=== PATIENT | male | born 1975 | race Caucasian/White ===

== ENCOUNTER 2017-07-04 07:52 | Emergency (ER) | payer SELFPAY ==
[~2017-07-04] VITALS: Ht 177.8 cm; Wt 98.0 kg
[~2017-07-04 07:52] MED LIST: CEPH500C3 PO; IBUP800T23 PO
[2017-07-04 07:54] VITALS: BP 142/78; PULSE 75; RESP 18; TEMP 97.7; O2SAT 98
[2017-07-04] MEDS ORDERED: ROBA500T PO (08:20)
[2017-07-04] MEDS ORDERED: MEDR4PAK PO (08:20)
[2017-07-04] MEDS ORDERED: IBUP1TAB7 PO (08:20)
--- NOTE | 2017-07-04 08:21 | PD ---
HPI Chief Complaint: Pain: Acute or Chronic Time Seen by Provider: 08:09 Travel History International Travel<30 days: No Contact w/Intl Traveler<30days: No Traveled to known affect area: No History of Present Illness HPI 42-year-old male presents to the emergency department with complaint of right arm pain of the muscle area of the right lateral elbow 1-1-1/2 weeks. He thinks he has tennis elbow. Denies traumatic injury. Reports doing excessive yard work a week and a half ago and then doing some deep sea fishing with worsening of symptoms after using the fishing pole and revealing in big fashion. Denies paresthesias, loss of sensation, decreased range of motion, decreased strength to the affected extremity. Pain is worse at night. Better throughout the day. Better after drinking alcohol. Has tried taking Percocet, Lortab, and Valium for symptom management. Symptoms are mild to moderate in severity. Has been using a tennis elbow brace and arm sleeve for symptom management. Has a primary care provider. No known allergies. No other modifying factors or associated signs and symptoms. PFSH Past Medical History Diminished Hearing: No Social History Alcohol Use: Yes Tobacco Use: Yes Substance Use: No Allergies-Medications (Allergen,Severity, Reaction): Coded Allergies: No Known Allergies (Unverified , 07/20/15) Reported Meds & Prescriptions Reported Meds & Active Scripts Active Ibuprofen 800 Mg Tab 800 Mg PO Q6HR PRN Medrol Dosepak (Methylprednisolone) 4 Mg Dspk 4 Mg PO DIRECTED Per Pharmacist direction Robaxin (Methocarbamol) 500 Mg Tab 500 Mg PO QID PRN Ibuprofen 800 Mg Tab 800 Mg PO Q8 PRN Keflex (Cephalexin Monohydrate) 500 Mg Cap 500 Mg PO Q6HR 7 Days Review of Systems Except as stated in HPI: all other systems reviewed are Neg Physical Exam Narrative GENERAL: Well-nourished, well-developed patient, in no acute distress SKIN: Warm and dry. HEAD: Atraumatic. Normocephalic. EYES: Pupils equal and round. No scleral icterus. No injection or drainage. ENT: Mucosa pink and moist. Airway patent. NECK: Trachea midline. CARDIOVASCULAR: Regular rate. RESPIRATORY: No accessory muscle use. GASTROINTESTINAL: Flat. MUSCULOSKELETAL: Right elbow with full range of motion; without edema; without erythema or ecchymosis; with tenderness on palpation to the musculature of the lateral aspect; with full hand packer/packager strength and push/pull strength; sensory intact; 2+ radial pulse. Right Upper extremity supple and nontense with 2+ radial pulse and sensory intact. No obvious deformities. No clubbing. No cyanosis. No edema. NEUROLOGICAL: Awake and alert. Oriented 3. No obvious cranial nerve deficits. Motor grossly within normal limits. Normal speech. PSYCHIATRIC: Appropriate mood and affect; insight and judgment normal. Data Data Last Documented VS Vital Signs Date Time Temp Pulse Resp B/P (MAP) Pulse Ox O2 Delivery O2 Flow Rate FiO2 07/04/17 07:54 97.7 75 18 142/78 (99) 98 Orders Orders Ed Discharge Order (07/04/17 08:21) Methocarbamol (Robaxin) (07/04/17 08:30) MDM Medical Decision Making Medical Screen Exam Complete: Yes Emergency Medical Condition: Yes Medical Record Reviewed: Yes Differential Diagnosis arm Pain, muscle strain of arm, epicondylitis Narrative Course 42-year-old male with right arm pain and muscle strain of right arm. Denies injury. Has full range of motion and strength. I do not suspect fracture dislocation feel that imaging is not necessary at this time. Patient agrees. Patient requesting steroids. I discussed use of steroids and he would like to try them because pain medications are not working. Ibuprofen, Medrol Dosepak, Robaxin prescribed home. Instructed patient to follow-up with orthopedics as needed. Instructed patient to follow up with primary care provider. Patient verbalizes understanding and agreement with treatment plan. Patient is medically cleared and stable for discharge. Discussed reasons to return to the emergency department. Patient agrees with treatment plan. The patients vital signs are stable and the patient is stable for outpatient follow-up and treatment. Patient discharged home, stable and in no acute distress. Diagnosis Primary Impression: Arm pain, right Additional Impression: Muscle strain of right upper extremity Qualified Codes: S46.911A - Strain of unspecified muscle, fascia and tendon at shoulder and upper arm level, right arm, initial encounter Referrals: Orthopaedic Surgeon Primary Care Physician Patient Instructions: Arm Pain (ED), General Instructions, Muscle Strain (ED) Additional Instructions: Ibuprofen or Tylenol as directed and as needed for pain and inflammation Avoid aggravating activity Increase activity as tolerated Brace as needed for support Ice and/or heat to affected area to reduce pain and inflammation Follow-up with orthopedics as needed Follow-up with primary care provider Return to the emergency department immediately with worsening of symptoms Med/Other Pt SpecificInfo: Prescription(s) given Scripts Ibuprofen (Ibuprofen) 800 Mg Tab 800 MG PO Q6HR Y for PAIN, #30 TAB 0 Refills Prov: Agata De Guzman 07/04/17 Methylprednisolone Dosepak (Medrol Dosepak) 4 Mg Dspk 4 MG PO DIRECTED, #1 DSPK 0 Refills Per Pharmacist direction Prov: Agata De Guzman 07/04/17 Methocarbamol (Robaxin) 500 Mg Tab 500 MG PO QID Y for MUSCLE SPASM, #30 TAB 0 Refills Prov: Agata De Guzman 07/04/17 Disposition: 01 DISCHARGE HOME Condition: Stable Agata De Guzman Jul 04, 2017 08:21
[2017-07-04] MEDS ORDERED: METHOCARBAMOL 500 MG TAB PO ONE (08:30)
== END 2017-07-04 08:29 | disposition home or self-care (01) ==
LOC: NEPD 07:52
DX: M79.601 Pain in right arm (principal); S46.911A Strain of unspecified muscle, fascia and tendon at shoulder and upper arm level, right arm, initial encounter; X58.XXXA Exposure to other specified factors, initial encounter
CPT/HCPCS: 99283